=== PATIENT | male | born 1995 | race Caucasian/White ===

== ENCOUNTER → 2016-10-17 | Outpatient (CLI) | payer MEDICAID ==
--- NOTE | 2016-10-17 20:10 | DX ---
Right Shoulder, Three Views Clinical Indications: Trauma. Findings: The humeral head is normally located in the glenoid fossa. No fracture or dislocation. N o evidence of neoplasm, necrosis, or arthritis. No calcifications of soft tissues. Impression: Normal.
== END ==
LOC: BRMIMAGING 13:36
PROVIDERS: ATTEND Family Medicine
DX: M25.511 Pain in right shoulder (principal)
CPT/HCPCS: 73030-PO